=== PATIENT | female | born 1965 | race Caucasian/White ===

== ENCOUNTER 2024-06-03 19:13 | Inpatient (IN) ==
--- NOTE | 2024-06-03 19:42 | Emergency Department Note ---
Impression & Plan VELASQUEZ (dyspnea on exertion), Pneumonia, SOB (shortness of breath), Failure of outpatient treatment, Immunocompromised, Elevated troponin ED Provider Note NAME: ANGELICA GONZALES AGE: 59 SEX: F : 1965 ARRIVES VIA: Walk-In INFORMANT: [Patient] ED PROVIDER(S): [Geraldo Tejada MD] CHIEF COMPLAINT: Dr. Referred HISTORY OF PRESENT ILLNESS: The patient is a 59-year-old female with asthma, MS and diabetes. She does take rituximab every 3 months for the MS. The patient states that 2 months ago, she developed respiratory symptoms. She was given 2 different antibiotics as well as steroids. She never really got that much better. About a month later, she was put on another antibiotic without any improvement. The patient has had a persistent productive cough. She has been increasingly short of breath with exertion. She is fatigued. She is having fevers at nighttime. The patient had an outpatient CT scan performed [address] scan showed a bilateral pneumonia. She was told the results today and referred to the ER, hospitalization was suggested. PMHx/PSHx/Social Hx: See Below PHYSICAL EXAM: GENERAL: Patient is in no acute distress. HEENT: No acute trauma, normocephalic atraumatic, mucous membranes moist, no nasal congestion. NECK: No stridor, no adenopathy, no meningismus, trachea is midline. LUNGS: Diminished breath sounds bilaterally with some scattered wheezes and scattered crackles, no respiratory distress. HEART: Without murmurs gallops or rubs, regular rate and rhythm. ABDOMEN: Soft, nontender, no peritonitis. EXTREMITIES: No cyanosis, full range of motion of all the joints without pain or difficulty. NEUROLOGIC: Oriented x 3, no acute motor or sensory deficits, no focal weakness. SKIN: No jaundice, no diaphoresis. DIFFERENTIAL DIAGNOSIS: Failed outpatient management, immunocompromise, pneumonia, bronchitis, asthma flare, among others. EMERGENCY DEPARTMENT PROCEDURES: MEDICAL DECISION MAKING: There is no leukocytosis. A mild anemia was seen. There was a slightly high platelet count. No coagulopathy. VBG did not show acidosis or CO2 retention. No significant electrolyte abnormality, no renal failure. Lactic acid level was not elevated making severe sepsis less likely. No worrisome liver enzyme elevation. ECG shows a sinus rhythm, no obvious ST elevation. Cardiac enzyme testing x 1 was slightly elevated. This troponin elevation could be secondary to cardiac injury or possibly mismatch from her dyspnea. Respiratory bio fire was negative. Chest film does show pneumonia, primarily on the right. On exam, the patient had diminished breath sounds with some wheezing and crackles. She had failed outpatient treatment for pneumonia. She does carry history of immunocompromise. The patient received IV Solu-Medrol, a DuoNeb, IV Zosyn. I do think the patient deserves a hospital stay. She has been sick for months, she has been on 2 different rounds of antibiotics without improvement. She is immunocompromise, she has asthma. She has a bilateral pneumonia on CT imaging. I spoke with the patient and case management, the on-call hospitalist was consulted. Prior/Outside records/notes reviewed: None ECG per my interpretation: Indication was shortness of breath. The ECG shows a normal sinus rhythm with a rate of 85. There is no acute ST elevation, no PVCs. The QTc is 428. Continuous Cardiac Monitoring per my interpretation: An order was placed for continuous cardiac monitoring. The monitor shows a rate of 90 with normal sinus rhythm. Imaging/x-ray results per my interpretation: Chest x-ray does show a right lower lung pneumonia. No pneumothorax. Chronic Medical/Social conditions affecting care: History of immunosuppression. Care/Management discussed with: Case management, the on-call hospitalist. Level of care consideration(s): After review of the information above and other included data: --I believe the patient requires escalation of care to admission DISPOSITION: Admission Past Med/Surg History Problem List (Updated 06/03/24 @ 21:56 by Geraldo Tejada MD) Elevated troponin (Acute) Immunocompromised (Acute) Failure of outpatient treatment (Acute) SOB (shortness of breath) (Acute) Pneumonia (Acute) VELASQUEZ (dyspnea on exertion) (Acute) Medical History History of multiple sclerosis Social History Smoking Status: Never smoker Preferred Language: Setswana Feels Safe at Home: Yes Allergies Allergies Allergy/AdvReac Type Severity Reaction Status Date / Time No Known Allergies Allergy Verified 06/03/24 20:54 Home Meds Home Medications Medication Instructions Recorded Confirmed acetaminophen 650 mg 650 mg PO DIRECTED PRN Pain 06/03/24 06/03/24 tablet,extended release amlodipine 10 mg tablet 10 mg PO DAILY 06/03/24 06/03/24 atorvastatin 80 mg tablet 80 mg PO DAILY 06/03/24 06/03/24 baclofen 20 mg tablet 20 mg PO QID 06/03/24 06/03/24 celecoxib 200 mg capsule 200 mg PO BID 06/03/24 06/03/24 chlorthalidone 25 mg tablet 25 mg PO DAILY 06/03/24 06/03/24 gabapentin 100 mg capsule 100 mg PO HS 06/03/24 06/03/24 gabapentin 300 mg capsule 300 mg PO HS 06/03/24 06/03/24 insulin glargine 100 unit/mL (3 58 unit subcut QDD 06/03/24 06/03/24 mL) subcutaneous pen (Lantus Solostar U-100 Insulin) ipratropium 20 mcg-albuterol 100 1 spray inhalation DIRECTED PRN 06/03/24 06/03/24 mcg/actuation mist for inhalation Shortness Of Breath Or Wheezing (Combivent Respimat) lisinopril 40 mg tablet 40 mg PO DAILY 06/03/24 06/03/24 meloxicam 15 mg tablet 15 mg PO DAILY 06/03/24 06/03/24 mometasone-formoterol HFA 100 1 inh inhalation DIRECTED PRN 06/03/24 06/03/24 mcg-5 mcg/actuation aerosol Shortness Of Breath Or Wheezing inhaler (Dulera) sertraline 50 mg tablet 50 mg PO DAILY 06/03/24 06/03/24 tirzepatide 10 mg/0.5 mL 10 mg subcut WK 06/03/24 06/03/24 subcutaneous pen injector (Leslee) Results & Data (ED) Vital Signs Vital Signs - 24 hr 06/03/24 19:16 06/03/24 19:35 06/03/24 19:35 Temperature 36.7 C Temperature Source Temporal Artery Scan Pulse Rate 90 Respiratory Rate 20 Respiratory Effort / Characteristics Non-Labored Spontaneous Respiratory Depth Normal Blood Pressure 176/90 H Blood Pressure Mean 118 Pulse Oximetry 96 Oxygen Delivery Method Room Air Room Air Room Air Sepsis Recent Fever Within 48 Hours No Sepsis New/Unexplained Change in Mental Status N/A Sepsis Action Taken by Nursing No Action Required 06/03/24 19:35 06/03/24 21:14 06/03/24 21:32 Temperature Temperature Source Pulse Rate 83 Respiratory Rate 16 Respiratory Effort / Characteristics Non-Labored Non-Labored Respiratory Depth Normal Normal Blood Pressure 163/94 H Blood Pressure Mean 117 Pulse Oximetry 95 Oxygen Delivery Method Room Air Room Air Sepsis Recent Fever Within 48 Hours Sepsis New/Unexplained Change in Mental Status Sepsis Action Taken by Jail Medications Current Medication List: was personally reviewed by me Laboratory Data Attestation: I reviewed the patient's lab results. 06/03/24 19:47 06/03/24 19:47 Lab Results 06/03/24 06/03/24 Range/Units 19:47 20:11 WBC 7.38 (4.8-10.8) K/ul RBC 3.83 L (4.20-5.40) M/uL Hgb 11.2 L (12.0-16.0) g/dl Hct 34.4 L (37.0-47.0) % MCV 89.8 (80.0-100.0) fL MCH 29.2 (25.0-34.0) pg MCHC 32.6 (32.0-36.0) g/dL RDW Std Deviation 46.4 H (36.4-46.3) fL RDW Coeff of Calista 14.2 (11.5-14.5) % Plt Count 402 H (130-400) K/uL MPV 9.9 (9.4-12.4) fL Immature Gran % (Auto) 0.4 % Neut % (Auto) 65.8 % Lymph % (Auto) 19.5 % [place] % (Auto) 8.1 % Eos % (Auto) 5.7 % Baso % (Auto) 0.5 % Neut # (Auto) 4.85 (1.40-6.50) K/uL Lymph # (Auto) 1.44 (1.20-3.40) K/uL [place] # (Auto) 0.60 H (0.11-0.59) K/uL Eos # (Auto) 0.42 (0.00-0.50) K/uL Baso # (Auto) 0.04 (0.00-0.20) K/uL Immature Gran # (Auto) 0.03 (0.01-0.20) K/uL PT 10.2 (9.0-12.0) Seconds INR 0.9 (0.9-1.1) APTT 27 (21-31) Seconds PTT Ratio 1.0 VBG pH 7.41 (7.36-7.41) VBG pCO2 46 (38-50) mmHg VBG pO2 36 mmHg VBG HCO3 29 mmol/L VBG O2 Saturation < 60.0 % VBG Base Excess 3.8 mEq/L Sodium 141 (136-145) mmol/L Potassium 4.0 (3.5-5.1) mmol/L Chloride 104 (98-107) mmol/L Carbon Dioxide 30 (21-32) mmol/L Anion Gap 7 (3-11) BUN 19 (6-23) mg/dl Creatinine 0.91 (0.6-1.2) mg/dl Est Cr Clr Drug Dosing 86.8 ml/min eGFR 72.22 BUN/Creatinine Ratio 20.9 H (10-20) Glucose 121 H (70-99(Fasting)) mg/dl Lactate 1.0 (0.4-2.0) mmol/L Calcium 9.9 (8.6-10.3) mg/dl Magnesium 1.9 (1.7-2.4) mg/dl Total Bilirubin 0.3 (0.2-1.0) mg/dl AST 15 (13-39) U/L ALT 12 (7-52) U/L Alkaline Phosphatase 169 H (34-104) U/L Troponin I High Sens 19.0 H (0-14) pg/ml Total Protein 7.2 (6.0-8.3) gm/dl Albumin 4.0 (3.4-5.0) gm/dl Globulin 3.2 (2.5-4.0) gm/dl Albumin/Globulin Ratio 1.3 (0.9-2) Adenovirus (PCR) Not Detected (NotDetected) B. pertussis DNA (PCR) Not Detected (NotDetected) B.parapertussis DNA PCR Not Detected (NotDetected) C. pneumoniae DNA (PCR) Not Detected (NotDetected) Coronavirus OC43 (PCR) Not Detected (NotDetected) Coronavirus HKU1 (PCR) Not Detected (NotDetected) Coronavirus 229E (PCR) Not Detected (NotDetected) SARS-CoV-2 (PCR) Not Detected (NotDetected) Coronavirus NL63 (PCR) Not Detected (NotDetected) Human Metapneumovir PCR Not Detected (NotDetected) Influenza Type A (PCR) Not Detected (NotDetected) Influenza Type B (PCR) Not Detected (NotDetected) M. pneumoniae (PCR) Not Detected (NotDetected) Parainfluenza 1 (PCR) Not Detected (NotDetected) Parainfluenza 2 (PCR) Not Detected (NotDetected) Parainfluenza 3 (PCR) Not Detected (NotDetected) Parainfluenza 4 (PCR) Not Detected (NotDetected) RSV (PCR) Not Detected (NotDetected) Entero/Rhino (PCR) Not Detected (NotDetected) Administered Medications Discontinued Medications Albuterol (Albut/Ipratrop 3mg/0.5mg Neb 3 Ml Vial) 3 ml NEB NOW STA; Protocol Stop: 06/03/24 19:36 Last Admin: 06/03/24 19:51 Dose: 3 ml Documented By: TOMÁS Amlodipine Besylate (Amlodipine Besylate 5 Mg Tab) 10 mg PO NOW ONE Stop: 06/03/24 21:22 Last Admin: 06/03/24 21:43 Dose: 10 mg Documented By: TOMÁS Baclofen (Baclofen 20 Mg Tab) 20 mg PO ONE ONE Stop: 06/03/24 21:22 Last Admin: 06/03/24 21:45 Dose: 20 mg Documented By: TOMÁS Chlorthalidone (Chlorthalidone 25 Mg Tab) 25 mg PO ONE ONE Stop: 06/03/24 21:23 Last Admin: 06/03/24 21:43 Dose: 25 mg Documented By: TOMÁS Gabapentin (Gabapentin 400 Mg Cap) 400 mg PO ONE ONE Stop: 06/03/24 21:24 Last Admin: 06/03/24 21:44 Dose: 400 mg Documented By: TOMÁS Piperacillin Sod/Tazobactam Sod (Zosyn) 4.5 gm in 100 mls @ 200 mls/hr IV NOW ONE Stop: 06/03/24 20:04 Last Infusion: 06/03/24 20:30 Dose: Infused Documented By: Admin: 06/03/24 19:54 Dose: 200 mls/hr Documented By: TOMÁS Lisinopril (Lisinopril 40 Mg Tab) 40 mg PO ONE ONE Stop: 06/03/24 21:23 Last Admin: 06/03/24 21:44 Dose: 40 mg Documented By: TOMSÁ Meloxicam (Meloxicam 7.5 Mg Tab) 15 mg PO ONE ONE Stop: 06/03/24 21:24 Last Admin: 06/03/24 21:45 Dose: 15 mg Documented By: TOMÁS Methylprednisolone (Methylprednisolone 125 Mg/2 Ml Vial) 60 mg IV NOW STA Stop: 06/03/24 19:36 Last Admin: 06/03/24 19:52 Dose: 60 mg Documented By: TOMÁS Ondansetron HCl (Ondansetron Inj 2 Mg/Ml 2 Ml Vial) Confirm Administered Dose 4 mg .ROUTE .STK-MED ONE Stop: 06/03/24 20:08 Last Admin: 06/03/24 20:09 Dose: 4 mg Documented By: TOMÁS Sertraline HCl (Sertraline Hcl 50 Mg Tablet) 50 mg PO NOW ONE Stop: 06/03/24 21:22 Last Admin: 06/03/24 21:45 Dose: Not Given Documented By: TOMÁS Imaging Data Radiologist's Impression: Patient: ANGELICA GONZALES Admit Date: 06/01/24 MR#: [id number] Address1: [address] [place] [address] Acct ID:[id number] Address2: Date: 1965 [facility] Zip: [place] [address] Age: 59 Location: CT Sex: F Room/Bed: Att Phy: Alicia Nuñez PA-C Diagnosis: J18.9 PNEUMONIA Brittany Phy: Alicia Nuñez PA-C Service Date: 06/01/24 Fam Phy: Interpreting Phy: Ace Roper MDAdmit Phy: Ordering Phy: Alicia Nuñez PA-C cc: ~ CT chest diagnostic wo con CT DOSE: 899.64 mGy.cm CLINICAL HISTORY: J18.9 PNEUMONIA. TECHNIQUE: Multiaxial CT images of the chest were performed without contrast. A dose lowering technique was utilized adhering to the principles of ALARA. COMPARISON STUDY: Chest x-ray of 11/21/2023 FINDINGS: Stable atrial septal closure device. There are mild airway secretions. There is mild bronchial wall thickening consistent with bronchitis. There are interval scattered areas of patchy consolidation and groundglass opacity in both lungs, most prominent at the right upper lobe, consistent with pneumonia. There is no pleural effusion or pneumothorax. No enlarged adenopathy. No pericardial effusion. There are mitral valvular calcifications. There are mild coronary artery calcifications. There are mild diffuse thoracic spine degenerative changes. There is a vertebral body hemangioma at the T2 vertebral body. IMPRESSION: Bilateral pneumonia, right greater than left. Suggest follow-up chest CT in 3 months to make sure this completely resolves. Discharge Plan Visit Data Chief Complaint: Shortness of Breath/Dyspnea Stated Complaint: BILATERAL PNEUMONIA, DOC REFERRAL ED Provider: Geraldo Tejada Discharge Problem: VELASQUEZ (dyspnea on exertion), Pneumonia, SOB (shortness of breath), Failure of outpatient treatment, Immunocompromised, Elevated troponin Patient Disposition: Admitted As Inpatient Condition: Fair Forms Stand Alone Forms: My [facility] Prescriptions Prescriptions: No Action celecoxib 200 mg Capsule 200 mg PO BID atorvastatin 80 mg tablet 80 mg PO DAILY meloxicam 15 mg tablet 15 mg PO DAILY chlorthalidone 25 mg tablet 25 mg PO DAILY acetaminophen [Tylenol Arthritis] 650 mg Tablet Extended Release 650 mg PO DIRECTED PRN (Reason: Pain) baclofen 20 mg tablet 20 mg PO QID amlodipine 10 mg tablet 10 mg PO DAILY gabapentin 300 mg capsule 300 mg PO HS Rx Instructions: TOTAL DOSE 400 MG--TAKES WITH 100 MG CAP. gabapentin 100 mg capsule 100 mg PO HS Rx Instructions: TOTAL DOSE 400 MG--TAKES WITH 300 MG CAP. lisinopril 40 mg tablet 40 mg PO DAILY sertraline 50 mg tablet 50 mg PO DAILY insulin glargine [Lantus Solostar U-100 Insulin] 100 unit/mL (3 mL) insulin pen 58 unit SUBCUT QDD Dulera 100-5 mcg/actuation HFA aerosol inhaler 1 inh INHALATION DIRECTED PRN (Reason: Shortness Of Breath Or Wheezing) Combivent Respimat 20-100 mcg/actuation mist 1 spray INHALATION DIRECTED PRN (Reason: Shortness Of Breath Or Wheezing) Mounjaro 10 mg/0.5 mL pen injector 10 mg SUBCUT WK Rx Instructions: TAKES ON THURSDAYS Referrals Referrals: Alicia Nuñez PA-C [Primary Care Provider] - Discharge Problem: Pneumonia Qualifiers: Pneumonia type: due to unspecified organism Laterality: bilateral Lung location: unspecified part of lung Qualified Code(s): J18.9 - Pneumonia, unspecified organism
[2024-06-03] MEDS: ALBUT/IPRATROP 3MG/0.5MG NEB 3 ML VIAL NEB STA (19:51)
[2024-06-03] MEDS: methylPREDNISolone 125 MG/2 ML VIAL IV STA (19:52)
[2024-06-03] MEDS: PIPERACILLIN/TAZOBACTAM 4.5 GM/100 ML BAG IV ONE (19:54)
[2024-06-03 20:08] LABS: Base Excess VBG 3.8 mEq/L; Basophils # (auto) 0.04 K/uL (0.00-0.20); Basophils % (auto) 0.5 %; Eosinophils # (auto) 0.42 K/uL (0.00-0.50); Eosinophils % (auto) 5.7 %; HCO3 VBG 29 mmol/L; Hematocrit (blood only) 34.4 % (37.0-47.0); Hemoglobin 11.2 g/dl (12.0-16.0); Immature Granulocytes # (auto) 0.03 K/uL (0.01-0.20); Immature Granulocytes % (auto) 0.4 %; Lymphocytes # (auto) 1.44 K/uL (1.20-3.40); Lymphocytes % (auto) 19.5 %; Mean Corpuscular Hemoglobin 29.2 pg (25.0-34.0); Mean Corpuscular Hgb Conc 32.6 g/dL (32.0-36.0); Mean Corpuscular Volume 89.8 fL (80.0-100.0); Mean Platelet Volume 9.9 fL (9.4-12.4); Monocytes % (auto) 8.1 %; Neutrophils # (auto) 4.85 K/uL (1.40-6.50); Neutrophils % (auto) 65.8 %; Oxygen Saturation VBG < 60.0 %; PCO2 VBG 46 mmHg (38-50); PO2 VBG 36 mmHg; Platelet Count 402 K/uL (130-400); RDW Coefficient of Variation 14.2 % (11.5-14.5); RDW Standard Deviation 46.4 fL (36.4-46.3); Red Blood Count 3.83 M/uL (4.20-5.40); White Blood Count 7.38 K/ul (4.8-10.8); pH VBG 7.41 (7.36-7.41)
[2024-06-03] MEDS: ONDANSETRON INJ 2 MG/ML 2 ML VIAL ONE (20:09)
[2024-06-03 20:25] LABS: Albumin Globulin Ratio 1.3 (0.9-2); BUN Creatinine Ratio 20.9 (10-20); Bilirubin,Total 0.3 mg/dl (0.2-1.0); Calcium 9.9 mg/dl (8.6-10.3); Creatinine Clr Calc Pharmacy 86.8 ml/min; Globulin 3.2 gm/dl (2.5-4.0); Magnesium 1.9 mg/dl (1.7-2.4); Total Protein 7.2 gm/dl (6.0-8.3)
[2024-06-03 20:36] LABS: INR 0.9 (0.9-1.1); Partial Thromboplastin Time 27 Seconds (21-31); Prothrombin Time 10.2 Seconds (9.0-12.0)
[2024-06-03 21:08] LABS: Adenovirus PCR Not Detected (NotDetected); Bordetella parapertussis PCR Not Detected (NotDetected); Bordetella pertussis PCR Not Detected (NotDetected); Chlamydia pneumoniae PCR Not Detected (NotDetected); Coronavirus 229E PCR Not Detected (NotDetected); Coronavirus CoV-2 (COVID19)PCR Not Detected (NotDetected); Coronavirus HKU1 PCR Not Detected (NotDetected); Coronavirus NL63 PCR Not Detected (NotDetected); Coronavirus OC43PCR Not Detected (NotDetected); Human Metapneumovirus PCR Not Detected (NotDetected); Influenza A PCR Not Detected (NotDetected); Influenza B PCR Not Detected (NotDetected); Mycoplasma pneumoniae PCR Not Detected (NotDetected); Parainfluenza Virus 1 PCR Not Detected (NotDetected); Parainfluenza Virus 2 PCR Not Detected (NotDetected); Parainfluenza Virus 3 PCR Not Detected (NotDetected); Parainfluenza Virus 4 PCR Not Detected (NotDetected); Respiratory Syncytial VirusPCR Not Detected (NotDetected); Rhinovirus/Enterovirus PCR Not Detected (NotDetected)
[2024-06-03] MEDS: CHLORTHALIDONE 25 MG TAB PO ONE (21:43)
[2024-06-03] MEDS: amLODIPine BESYLATE 5 MG TAB PO ONE (21:43)
[2024-06-03] MEDS: lisinopril 40 MG TAB PO ONE (21:44)
[2024-06-03] MEDS: GABAPENTIN 400 MG CAP PO ONE (21:44)
[2024-06-03] MEDS: SERTRALINE HCL 50 MG TABLET PO ONE (21:45)
[2024-06-03] MEDS: MELOXICAM 7.5 MG TAB PO ONE (21:45)
[2024-06-03] MEDS: BACLOFEN 20 MG TAB PO ONE (21:45)
--- NOTE | 2024-06-03 21:47 | History & Physical Report ---
Date of Service June 03, 2024 Assessment & Plan (1) Pneumonia: Plan: Bilateral pneumonia seen on outpatient CT. With rib pain and SOB would like to r/o PE. PERC cannot rule out, Well's low risk. Ordered D-dimer as the pre-test probability is low. D-dimer positive - ordered CTA PE protocol. Zosyn for broad coverage as patient failed outpatient management and carries an immunocompromised status. pulmonary toilet - mucinex, IS, flutter, duonebs, steroids zosyn for abx - if MRSA nares neg could consider narrowing blood cultures pending continue home inhalers with on formulary equivalent CTA PE protocol (2) Insulin dependent type 2 diabetes mellitus: Plan: SSI with basal coverage. Pharmacy consulted as she will likely need increased coverage with steroid therapy. (3) Elevated troponin: Plan: Likely demand ischemia. Trend to peak. (4) SOB (shortness of breath): (5) Asthma exacerbation: (6) Immunocompromised: (7) Failure of outpatient treatment: (8) Rib pain: Plan HTN: continue amlodipine, lisinopril, chlorthalidone Muscle Spasms/Chronic Pain: continue Meloxicam/Celebrex, gabapentin, baclofen, and Tylenol as needed HLD: continue high intensity statin therapy Code status: full DVT ppx: Lovenox 40 mg SQ Q24 FENGI: CC diet Dispo: MedSurg, continuous pulse ox History of Present Illness Chief Complaint: cough SOB Primary Care Provider: Alicia Nuñez 59 y/o female with a PMHx of MS on Rituximab, IDDM, HTN, HLD, muscle spasms/chronic pain, and asthma here for evaluation of respiratory symptoms. Patient has been treated multiple times for presumed pneumonia. She was treated initially in February with Augmentin, Z-pack, and Medrol dose pack. Symptoms without significant improvement at the end of March so 7 days of Levaquin was prescribed and a CT Chest ordered. Patient got the CT Chest 06/01 which showed bilateral multifocal pneumonia and she was instructed to come to the ED. Patient does take Tylenol throughout the day for pain so she has not noticed any fevers. Patient does wake up sweaty, which is abnormal for her. No unintentional weight loss. Did have an episode of right sided flank/rib pain and reports muscle spasms from cough. No abdominal pain. Has urinary frequency and drinks a lot of water, but no pain or blood in the urine. Reports that she gets dehydrated easily. She takes most of her medications at night, so she had not had her BP meds today. Allergies Allergy/AdvReac Type Severity Reaction Status Date / Time No Known Allergies Allergy Verified 06/03/24 20:54 Home Medications Medication Instructions Recorded Confirmed Type acetaminophen 650 mg 650 mg PO DIRECTED PRN Pain 06/03/24 06/03/24 History tablet,extended release amlodipine 10 mg tablet 10 mg PO DAILY 06/03/24 06/03/24 History atorvastatin 80 mg tablet 80 mg PO DAILY 06/03/24 06/03/24 History baclofen 20 mg tablet 20 mg PO QID 06/03/24 06/03/24 History celecoxib 200 mg capsule 200 mg PO BID 06/03/24 06/03/24 History chlorthalidone 25 mg tablet 25 mg PO DAILY 06/03/24 06/03/24 History gabapentin 100 mg capsule 100 mg PO HS 06/03/24 06/03/24 History gabapentin 300 mg capsule 300 mg PO HS 06/03/24 06/03/24 History insulin glargine 100 unit/mL (3 58 unit subcut QDD 06/03/24 06/03/24 History mL) subcutaneous pen (Lantus Solostar U-100 Insulin) ipratropium 20 mcg-albuterol 100 1 spray inhalation DIRECTED PRN 06/03/24 06/03/24 History mcg/actuation mist for inhalation Shortness Of Breath Or Wheezing (Combivent Respimat) lisinopril 40 mg tablet 40 mg PO DAILY 06/03/24 06/03/24 History meloxicam 15 mg tablet 15 mg PO DAILY 06/03/24 06/03/24 History mometasone-formoterol HFA 100 1 inh inhalation DIRECTED PRN 06/03/24 06/03/24 History mcg-5 mcg/actuation aerosol Shortness Of Breath Or Wheezing inhaler (Dulera) sertraline 50 mg tablet 50 mg PO DAILY 06/03/24 06/03/24 History tirzepatide 10 mg/0.5 mL 10 mg subcut WK 06/03/24 06/03/24 History subcutaneous pen injector (Leslee) Past Med/Surg History Problem List (Updated 06/03/24 @ 21:59 by Lina Perez MD) Rib pain Insulin dependent type 2 diabetes mellitus Asthma exacerbation Elevated troponin (Acute) Immunocompromised (Acute) Failure of outpatient treatment (Acute) SOB (shortness of breath) (Acute) Pneumonia (Acute) VELASQUEZ (dyspnea on exertion) (Acute) Medical History History of multiple sclerosis Social History Smoking Status: Never smoker Second Hand Exposure: Yes (as a child); Hx Alcohol Use: Yes Alcohol type: hard liquor Hx Substance Use: No Preferred Language: Croatian Communication Ability: Effective 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 Beliefs That Will Affect Care: None Current Living Situation: Spouse Feels Safe at Home: Yes Safety Concerns: Feels Safe At This Time Assistive Devices: Cane and Walker Review of Systems 2 Review of Systems: See HPI Physical Exam 2 Physical Exam: Gen: well appearing patient in NAD, intermittently coughing - productive HEENT: AT NC MMM Resp: Diffuse rhonchi and rales, no obvious wheezing, diminished throughout, no increased work of breathing CV: RRR no m/r/g clinically well perfused Abd: +BS, soft, non-tender, non-distended, CVA or suprapubic tenderness MSK: no obvious deformities Skin: no rashes or bruising Neuro: alert and oriented Psych: appropriate mood and affect Results & Data Results & Data Vital Signs (Past 12 Hours) Vital Signs Temp Pulse Resp BP Pulse Ox O2 Del Method 06/03/24 21:32 83 16 163/94 H 95 Room Air 06/03/24 21:14 Room Air 06/03/24 19:35 Room Air 06/03/24 19:35 Room Air 06/03/24 19:16 36.7 C 90 20 176/90 H 96 Room Air Laboratory Results 06/03/24 19:47 06/03/24 19:47 Code Status & VTE Plan VTE Prophylaxis Plan VTE Prophylaxis will be ordered: Yes Supervising Physician Co-Signing Physician Notes Attending addendum: I have physically seen this patient, have supervised the medical residents activities, and agree with the H&P unless as otherwise noted. Assessment and Plan: The patient is a 59-year-old female past medical history including insulin- dependent milligrams, hypertension, hyperlipidemia, asthma, multiple sclerosis on rituximab, muscle spasms/chronic pain syndrome, who presents to the emergency department with worsening shortness of breath and productive cough. She has had treatment several times for presumed pneumonia. She underwent CT scan of chest on 06/01, which showed bilateral pneumonia, right greater than left. She is referred to the [facility] service for evaluation and treatment. #Bilateral pneumonia/immunocompromised state- CTA PE protocol performed on 06/01 notes bilateral pneumonia/right greater than left Zosyn 4.5 g IV every 8 hours Duonebs every 4 hours while awake and every 2 hours when necessary. Had MRSA swab, titrate if positive Sputum Gram stain culture Continue home inhalers Diabetes mellitus- Pharmacy glycemic consult placed Elevated troponin/hypertension- Troponin 19.0, follow-up pending Continue amlodipine, lisinopril and chlorthalidone Likely supply/demand mismatch Chronic medical conditions: Hyperlipidemia continue atorvastatin Muscle spasm/chronic pain syndrome-continue meloxicam/Celebrex, gabapentin, baclofen, Tylenol as needed Resident Activity Tracking Resident Involvement: Resident Care Provided Care Provided: Adult Hospital Medicine (1) Pneumonia Laterality: bilateral Lung location: unspecified part of lung Pneumonia type: due to unspecified organism Qualified Code(s): J18.9 - Pneumonia, unspecified organism
--- NOTE | 2024-06-03 21:59 | XRay Report ---
Exam(s): XR CXR 1 VIEW EXAM: XR Chest, 1 View CLINICAL HISTORY: Reason for exam: Dyspnea. TECHNIQUE: Frontal view of the chest. COMPARISON: 11/21/2023 FINDINGS: Lungs: No consolidation. No overt edema. Pleural space: No pleural effusion. No pneumothorax. Heart: Unremarkable. No cardiomegaly. IMPRESSION: No acute cardiopulmonary abnormality. Electronically signed by: Jayden Glover MD 06/03/24 21:58 PM
[2024-06-03 22:00] LABS: D Dimer 630 ug/L FEU (0-500)
[2024-06-03] MEDS: OPTIRAY 320 125ml IV ONE (22:53)
[2024-06-03] MEDS ORDERED: CARBOHYDRATES FOR HYPOGLYCEMIA PO PRN (23:54)
[2024-06-03] MEDS ORDERED: PHARMACY GLYCEMIC MGMT CONSULT PRN (23:54)
[2024-06-03] MEDS ORDERED: IPRATROPIUM BROMIDE/ALBUTEROL respimat INH INH PRN (23:54)
[2024-06-03] MEDS ORDERED: GLUCAGON FOR INJ 1 MG VIAL SQ PRN (23:54)
[2024-06-03] MEDS ORDERED: ALBUT/IPRATROP 3MG/0.5MG NEB 3 ML VIAL NEB PRN (23:54)
[2024-06-03] MEDS ORDERED: GLUCOSE 10 TAB/TUBE PO PRN (23:54)
[2024-06-03] MEDS ORDERED: MELATONIN 3 MG TAB PO PRN (23:54)
[2024-06-03] MEDS ORDERED: [UNRECOGNIZED DRUG - OTHER] INH PRN (23:54)
[2024-06-03] MEDS ORDERED: MAGNESIUM HYDROXIDE SUSP 30 ML UDC PO PRN (23:54)
[2024-06-03] MEDS ORDERED: DEXTROSE 50% 50 ML SYRINGE IV PRN (23:54)
[2024-06-03] MEDS ORDERED: POLYETHYLENE (MIRALAX) 17 GM PACK PO PRN (23:54)
[2024-06-03] MEDS ORDERED: ALUMINUM/MAGNESIUM SUSP 30 ML UDC PO PRN (23:54)
[2024-06-03] MEDS ORDERED: GLUCOSE 40% GEL 15 GM TUBE PO PRN (23:54)
[2024-06-03 23:57] LABS: Appearance Urine Cloudy (Clear); Bacteria Urine Automated 1+ (None Seen); Bilirubin Urine Negative (Negative); Blood Urine Negative (Negative); Calcium Oxalate Crystals Urine Present (None Prsent); Cast Urine Automated 0-2 /lpf (0-2); Color Urine Yellow; Glucose Urine UA Negative (Negative); Ketones Urine Trace (Negative); Leukocyte Esterase Urine Negative (Negative); Nitrite Urine Negative (Negative); Protein Urine Negative (Negative); RBC Urine Automated 0-2 /hpf (0-2); Specific Gravity Urine 1.024 (1.000-1.030); Urobilinogen Urine Negative (Negative); WBC Urine Automated 0-5 /hpf (0-5); pH Urine 5.5 (4.5-7.5)
[2024-06-04] MEDS: ALBUT/IPRATROP 3MG/0.5MG NEB 3 ML VIAL NEB SCH (00:30)
--- NOTE | 2024-06-04 00:33 | CT Scan Report ---
Exam(s): CTA CHEST IV Amt: 118 ML OPTIRAY 320 EXAM: CT Angiography Chest With Intravenous Contrast CLINICAL HISTORY: Reason for exam: PE. TECHNIQUE: Axial computed tomographic angiography images of the chest with intravenous contrast. CTDI is 38 mGy and DLP is 860.05 mGy-cm. Automated exposure control was utilized for the study. A dose lowering technique was utilized adhering to the principles of ALARA. MIP reconstructed images were created and reviewed. COMPARISON: No relevant prior studies available. FINDINGS: Artifact degrades image quality somewhat limiting the exam. Pulmonary arteries: No pulmonary embolism is seen. Aorta: No thoracic aortic aneurysm or dissection. Lungs: There are patchy bilateral infiltrates more pronounced on the right.. Pleural space: No significant effusion. No pneumothorax. Heart: Heart is normal in size. A cardiac stent is noted. Bones/joints: There are degenerative changes in the spine. Soft tissues: Unremarkable. Lymph nodes: No enlarged lymph nodes. IMPRESSION: Limited exam. No pulmonary embolism is seen. There are patchy bilateral infiltrates more pronounced on the right. Electronically signed by: Seamus Kennedy MD 06/04/24 00:32 AM
[2024-06-04] MEDS: ENOXAPARIN INJ 40 MG/0.4 ML SYR SQ SCH (01:22)
[2024-06-04] MEDS: PIPERACILLIN/TAZOBACTAM 4.5 GM/100 ML BAG IV SCH (01:23)
[2024-06-04] MEDS: INSULIN ASPART PER UNIT CHARGE SC SCH (01:28)
[2024-06-04] MEDS ORDERED: IPRATROPIUM BROMIDE HFA INHALER INH PRN (03:28)
[2024-06-04] MEDS ORDERED: ALBUTEROL HFA 8 GM INHALER INH PRN (03:28)
[2024-06-04] MEDS: ACETAMINOPHEN 500 MG TAB PO PRN (03:55)
[2024-06-04 04:10] LABS: Hematocrit (blood only) 31.3 % (37.0-47.0); Hemoglobin 10.1 g/dl (12.0-16.0); Mean Corpuscular Hemoglobin 28.9 pg (25.0-34.0); Mean Corpuscular Hgb Conc 32.3 g/dL (32.0-36.0); Mean Corpuscular Volume 89.7 fL (80.0-100.0); Mean Platelet Volume 10.4 fL (9.4-12.4); Platelet Count 361 K/uL (130-400); RDW Coefficient of Variation 14.3 % (11.5-14.5); RDW Standard Deviation 46.1 fL (36.4-46.3); Red Blood Count 3.49 M/uL (4.20-5.40); White Blood Count 6.52 K/ul (4.8-10.8)
[2024-06-04] MEDS: BACLOFEN 10 MG TAB PO STA (04:52)
[2024-06-04 06:13] LABS: BUN Creatinine Ratio 20.7 (10-20); Creatinine Clr Calc Pharmacy 65.7 ml/min; Potassium 4.9 mmol/L (3.5-5.1)
[2024-06-04] MEDS: ALBUT/IPRATROP 3MG/0.5MG NEB 3 ML VIAL ONE (07:03)
[2024-06-04] MEDS: guaiFENesin 600 MG TABCR PO SCH (08:00)
[2024-06-04] MEDS: BACLOFEN 20 MG TAB PO SCH (08:00)
[2024-06-04] MEDS: methylPREDNISolone 40 MG in SYRINGE 0 ML IV SCH (08:00)
[2024-06-04] MEDS: CeleBREX 200 MG CAP PO SCH (08:00)
[2024-06-04] MEDS: ATORVASTATIN 40 MG TAB PO SCH (08:00)
[2024-06-04] MEDS: LANTUS PER UNIT CHARGE SC SCH ×2 (08:09→20:45)
[2024-06-04 08:32] LABS: Estimated Average Glucose 197 mg/dl; Hemoglobin A1C 8.5 % (4.5-5.6)
[2024-06-04] MEDS ORDERED: LANTUS PER UNIT CHARGE SQ SCH (09:00)
[2024-06-04] MEDS ORDERED: methylPREDNISolone 10 mg/mL (For Ped Dose < 7mg) IV SCH (09:00)
[2024-06-04] MEDS: SODIUM CHLORIDE 0.9% 500 ML IV ONE (09:23)
--- NOTE | 2024-06-04 10:45 | Pharmacy Report ---
Pharmacy Glycemic Short Note 2 - Date of Service June 04, 2024 - Glycemic Short BSG Results (Last 24 hours): 06/03/24 06/04/24 06/04/24 19:47 03:46 05:24 Glucose 121 H Cancelled 367 H* POC Glucose 06/04/24 06/04/24 07:30 07:32 Glucose POC Glucose 319 H* 326 H* OUTPATIENT ANTIDIABETIC REGIMEN: * Lantus 58 units SQ QDD * Mounjaro 10mg SQ TH * HbA1c 8.5% (06/04/24) ASSESSMENT: * Sandra is a 59 year old female admitted with bilateral pneumonia/asthma exacerbation and a history of type 2 diabetes mellitus on insulin therapy outpatient. Pharmacy has been consulted to assist with glycemic management while inpatient. * BSGs well controlled yesterday evening, no additional basal insulin given yesterday with steroids due to this. Received Solumedrol 60mg IV x1 yesterday and has 40mg IV BID ordered ongoing. Will give ~0.4 units/kg adjusted body weight this morning with steroids and add a scale at bedtime with nightime Solumedrol up to home insulin dose. * NovoLog initiated based on outpatient basal dosing, no insulin given yesterday due to BSGs within goal range, AM BSG in 300s, showing significant steroid reactivity, will adjust to a weight based stress of 3. PLAN FOR INPATIENT GLYCEMIC CONTROL: * Hold outpatient oral diabetes medications * Basal insulin * Lantus 30 units SQ QAM * Lantus 20-60 units SQ HS * Bolus insulin * NovoLog per scale ACHS or Q6hrs while NPO * Goal Range: Low 110 mg/dL - High 140 mg/dL * Correction Factor: 15 mg/dL/unit * Nutritional / Prandial insulin per carb ratio of 1 unit per 5 grams CHO consumed
[2024-06-04] MEDS: INSULIN HUMAN REGULAR PER UNIT 8 UNITS in SYRINGE 7.92 ML IV ONE (12:10)
--- NOTE | 2024-06-04 16:45 | Hospitalist Progress Note ---
Date of Service June 04, 2024 Assessment & Plan (1) Pneumonia: (2) Insulin dependent type 2 diabetes mellitus: (3) Elevated troponin: (4) Immunocompromised: (5) Failure of outpatient treatment: (6) Rib pain: Plan 59 y/o female with a PMHx of MS on Rituximab, IDDM, HTN, HLD, muscle spasms/chronic pain, and asthma here for evaluation of respiratory symptoms. Recent outpatient course of Levaquin. Also prior course of Augmentin/steroids. Had outpatient CT chest 06/01 that showed bilateral multifocal PNA and was instructed to come to the ER. #PNA / failure of outpatient treatment Positive D-Dimer, CTA chest without PE Continue Zosyn. MRSA nares negative. Pulmonary toilet - mucinex, IS, flutter, duonebs, steroids IV BID Blood cultures: pending Sputum culture orderded Remains on room air - encouraged ambulation to asses VELASQUEZ. #LEO suspect related to dehydration and continued meds Cr 0.91 on admission, 1.21 today 500cc NSS bolus given, encourage PO fluids recheck in AM #DMT2 Home meds: Lantus 58u - HELD Pharmacy glycemic consult with steroid use #Elevated troponin Peaked at 21, downtrending. EKG without ST elevations. Denies CP. Suspect demand. HTN: continue amlodipine, lisinopril, chlorthalidone Muscle Spasms/Chronic Pain: continue Meloxicam/Celebrex, gabapentin, baclofen, and Tylenol as needed HLD: continue high intensity statin therapy DVT ppx: Lovenox 40 mg SQ Q24 Dispo: continued inpatient stay, possible d/c tomorrow Admission and Anticipated Discharge Date Admission Date: June 03, 2024 Subjective patient seen sitting up in bed, eating lunch. At this time she room air and she does not cough during my encounter. She states that she is feeling better, does not feel like she is coughing as much has not been able to produce a sputum sample at this time is not ambulated for the bathroom so was unable to assess if she is short of breath with activityI encouraged her to do this Review of Systems Review of Systems: All systems reviewed & are unremarkable except as noted in Subjective Physical Exam Physical Exam: General: NAD, VS as above, sitting up in bed, eating lunch, appears well Resp: normal respiratory effort, mild rhonchi throughout CV: RRR, no murmur, Abd: normal bowel sounds, non tender, no hepatosplenomegaly Extremities: Moves all extremities, trace lower extremity edema Neuro: A&O x3, Skin: intact, no lesions noted Results & Data Results & Data Vital Signs (Past 12 Hours) Vital Signs Temp Pulse Pulse Resp BP Pulse Ox O2 Del Method 06/04/24 14:44 98.2 F 77 16 112/67 91 Room Air 06/04/24 07:29 Room Air 06/04/24 07:28 97.7 F 75 16 114/73 93 Room Air 06/04/24 07:03 80 16 95 Room Air Laboratory Results CBC and chemistry reviewed blood cultures and urine cultures reviewed Diagnostic Findings chest CTA reviewed PG Care Time/CCT Total # of Minutes Spent Total Time Spent with Patient: Total time spent is greater than 50% in coordination of care (as documented) at patient's floor/unit and/or counseling patient: Coding Level of Care Code 72675 SUB INP/OBS CARE 3/50MIN Diagnoses Pneumonia J18.9 Laterality: bilateral Lung location: unspecified part of lung Pneumonia type: due to unspecified organism Insulin dependent type 2 diabetes mellitus E11.9; Z79.4 Elevated troponin R79.89 Immunocompromised D84.9 Failure of outpatient treatment Z78.9 Rib pain R07.81 (1) Pneumonia Laterality: bilateral Lung location: unspecified part of lung Pneumonia type: due to unspecified organism Qualified Code(s): J18.9 - Pneumonia, unspecified organism
[2024-06-04] MEDS: GABAPENTIN 100 MG CAP PO SCH (20:30)
[2024-06-04] MEDS: GABAPENTIN 300 MG CAP PO SCH (20:31)
[2024-06-04] MEDS: lisinopril 40 MG TAB PO SCH (20:32)
[2024-06-04] MEDS: MELOXICAM 7.5 MG TAB PO SCH (20:32)
[2024-06-04] MEDS: SERTRALINE HCL 50 MG TABLET PO SCH (20:49)
[2024-06-04] MEDS ORDERED: CHLORTHALIDONE 25 MG TAB PO SCH (21:00)
--- NOTE | 2024-06-05 02:26 | Billing Data ---
Date of Service June 05, 2024 Coding Level of Care Code 72684 INT INP/OBS CARE
--- NOTE | 2024-06-05 05:59 | Electrocardiogram Report ---
Test Reason : Blood Pressure : */* mmHG Vent. Rate : 85 BPM Atrial Rate : 85 BPM P-R Int : 154 ms QRS Dur : 86 ms QT Int : 360 ms P-R-T Axes : 59 -5 46 degrees QTcB Int : 428 ms Normal sinus rhythm Normal ECG No previous ECGs available Confirmed by Rakan العراقي ([id number]) on 06/05/2024 5:59:25 AM Referred By: Alicia Nuñez Confirmed By: Rakan العراقي
[2024-06-05 07:15] LABS: BUN Creatinine Ratio 25.6 (10-20); Calcium 9.1 mg/dl (8.6-10.3); Potassium 4.4 mmol/L (3.5-5.1)
[2024-06-05 07:48] VITALS: BP 118/73; PULSE 70; RESP 16; TEMP 97.5; O2SAT 94
[2024-06-05] MEDS: LANTUS PER UNIT CHARGE SC SCH (08:45)
--- NOTE | 2024-06-05 09:33 | Discharge Summary ---
Discharge Summary Date of Service June 05, 2024 Principal Dx & Hospital Course #1 = Principal Diagnosis (1) Pneumonia: (2) Insulin dependent type 2 diabetes mellitus: (3) Elevated troponin: (4) Immunocompromised: (5) Failure of outpatient treatment: (6) Rib pain: Plan #PNA / failure of outpatient treatment 59 y/o female with a PMHx of MS on Rituximab, IDDM, HTN, HLD, muscle spasms/chronic pain, and asthma here for evaluation of respiratory symptoms. Recent outpatient course of Levaquin. Also prior course of Augmentin/steroids. Had outpatient CT chest 06/01 that showed bilateral multifocal PNA and was instr ucted to come to the ER. Was not requiring supplemental oxygen, but did have shortness of breath with exertion. She had a positive D-dimer so CTA chest was done showing no PE. Received IV zosyn, IV steroids, mucinex and duonebs, and has improved. Will be discharge with Augmentin, prednisone taper and course of Mucinex. Pt felt good improvement with nebulizer treatments and nebulizer has been prescribed for her. Blood cultures pending on discharge, negative at 24 hours. #LEO suspect related to dehydration and continued meds. This has improved with small IV fluid bolus. Encourage PO hydration at discharge #DMT2 Higher insulin needs with IV steroids. Dose reduce lantus to 40u tonight, as she receieved lantus this AM. Continue regular home dosing PM 06/06. #Elevated troponin Peaked at 21, downtrending. EKG without ST elevations. Denies CP. Suspect demand. HTN: continue amlodipine, lisinopril, chlorthalidone Muscle Spasms/Chronic Pain: continue Meloxicam/Celebrex, gabapentin, baclofen, and Tylenol as needed HLD: continue high intensity statin therapy Dispo: discharge to home today Notes For Next Care Provider Blood cultures pending Admission HPI Per Admitting Provider 59 y/o female with a PMHx of MS on Rituximab, IDDM, HTN, HLD, muscle spasms/chronic pain, and asthma here for evaluation of respiratory symptoms. Patient has been treated multiple times for presumed pneumonia. She was treated initially in February with Augmentin, Z-pack, and Medrol dose pack. Symptoms without significant improvement at the end of March so 7 days of Levaquin was prescribed and a CT Chest ordered. Patient got the CT Chest 06/01 which showed bilateral multifocal pneumonia and she was instructed to come to the ED. Patient does take Tylenol throughout the day for pain so she has not noticed any fevers. Patient does wake up sweaty, which is abnormal for her. No unintentional weight loss. Did have an episode of right sided flank/rib pain and reports muscle spasms from cough. No abdominal pain. Has urinary frequency and drinks a lot of water, but no pain or blood in the urine. Reports that she gets dehydrated easily. She takes most of her medications at night, so she had not had her BP meds today. Discharge Exam General: NAD, VS as above, sitting up in bed, appears well Resp: normal respiratory effort, clear to auscultation CV: RRR, no murmur, Abd: normal bowel sounds, non tender, soft Extremities: Moves all extremities, trace lower extremity edema Neuro: A&O x3, Discharge Plan Discharge Items Patient Disposition: Home - Self-Care Reason For Visit: SOB COUGH Discharge Diagnosis: Pneumonia Condition on Discharge: Fair Activity: Resume your previous activity Non-emergency contact: Primary Care Provider Call non-emergency contact if: you have any medication questions, your symptoms worsen, your pain is worsening, your pain is unusual for you and your temperature is above 101 Follow-up/Referrals: Alicia Nuñez PA-C [Primary Care Provider] - 06/12/24 1:40 pm ( registration time 1:25 pm for a 1:40pm appointment with Dr. Castanon) Diet: Carb Consistent or DM2 Addtl Attending Provider Instructions: Ms. Lanza, You were hospitalized after having multifocal pneumonia on CT scan. During your stay you had another CT scan done to check for blood clots in your lungs, thankf ully this was negative. You have continued to progress well on IV antibiotics and will be discharged home with oral antibiotics, steroids and Mucinex. You have blood cultures pending at the time of discharge, they are negative at 24 hours but take 5 days to get final results. If they turn positive you will be notified, you can also check in with your PCP or the [facility] portal. However, given your symptoms I do not expect they will be positive. Recommendations: * Your blood sugars have been high because of the IV steroids we have been giving you, requiring you to have more insulin needs. You received 60 units of lantus last night and 40 this morning. Given that you will still be on steroids for a few days, you sugars will likely remain higher but this should improve as the steroid dose increases. Since you got lantus this morning, recommend only taking 40 units of lantus tonight. Tomorrow (06/06) take your normal dose of lantus at night. * A nebulizer has been prescribed for you - you will have to pick this up from [facility]. The medicine for it will be at the pharmacy. * Take Augmentin (antibiotic) as directed, please take the full course. First dose PM 06/05 * Prednisone - this is steroid taper, take as directed. First dose AM 06/06 * Mucinex - first dose PM 06/05 * Continue to use the incentive spirometer and flutter valve at home while you continue to heal * Follow up with your PCP within 7-10 days Activity: You can do normal everyday activities as your body allows. Take rest breaks if you feel tired. Do not overexert. Stop activity if you have pain, shortness of breath or feel dizzy. Follow-up appointments: Make an appointment with your primary care physician within one week of discharge. A copy of this summary will be sent to them. Every time you see your primary care physician, or any other doctor, bring your medication list, and a list of questions. CONTACT YOUR PRIMARY CARE PROVIDER if you experience any of the following: Shortness of breath or difficulty breathing Fevers or chills Feeling tired with normal activity or experiencing dizziness or fainting Difficulty following your treatment plan, or difficulty taking medications CALL 911 OR GO TO THE EMERGENCY DEPARTMENT if you experience any of the following: Severe abdominal pain or nausea/vomiting Severe chest pain, or chest pain that radiates (moves) to your jaw or arm Sudden, severe shortness of breath or difficulty breathing Thank you for allowing us to participate in your care. Pending Studies at Discharge: Yes (blood cultures ) Stand-Alone Forms: My [employer], Work/School Release, Smoking Cessation Medications and DC Order Prescriptions: New guaifenesin [Mucinex] 600 mg Tablet Extended Release 12hr 1,200 mg PO Q12 7 Days Qty: 28 0RF amoxicillin-pot clavulanate 875-125 mg tablet 1 tab PO BID Qty: 14 0RF prednisone 10 mg tablet See Taper PO DIRECTED Qty: 27 0RF Taper: Taper, Blank 40 mg DAILY for 3 Days 30 mg DAILY for 3 Days 20 mg DAILY for 3 Days Rx Instructions: see taper instructions albuterol sulfate 2.5 mg /3 mL (0.083 %) solution for nebulization 2.5 mg inhalation Q6H PRN (Reason: shortness of breath or wheezing) Qty: 75 0RF Continued celecoxib 200 mg Capsule 200 mg PO BID atorvastatin 80 mg tablet 80 mg PO DAILY meloxicam 15 mg tablet 15 mg PO DAILY chlorthalidone 25 mg tablet 25 mg PO DAILY acetaminophen [Tylenol Arthritis] 650 mg Tablet Extended Release 650 mg PO DIRECTED PRN (Reason: Pain) baclofen 20 mg tablet 20 mg PO QID amlodipine 10 mg tablet 10 mg PO DAILY gabapentin 300 mg capsule 300 mg PO HS Rx Instructions: TOTAL DOSE 400 MG--TAKES WITH 100 MG CAP. gabapentin 100 mg capsule 100 mg PO HS Rx Instructions: TOTAL DOSE 400 MG--TAKES WITH 300 MG CAP. lisinopril 40 mg tablet 40 mg PO DAILY sertraline 50 mg tablet 50 mg PO DAILY insulin glargine [Lantus Solostar U-100 Insulin] 100 unit/mL (3 mL) insulin pen 58 unit SUBCUT QDD Dulera 100-5 mcg/actuation HFA aerosol inhaler 1 inh INHALATION DIRECTED PRN (Reason: Shortness Of Breath Or Wheezing) Combivent Respimat 20-100 mcg/actuation mist 1 spray INHALATION DIRECTED PRN (Reason: Shortness Of Breath Or Wheezing) Mounjaro 10 mg/0.5 mL pen injector 10 mg SUBCUT WK Rx Instructions: TAKES ON THURSDAYS Discharge Orders: Discharge Order (Routine); Ordered 06/05/24 Ordered By: Marge Johnson/Other Patient Handouts: Managing Type 2 Diabetes, Using a Nebulizer (Adult) Admission Data Admit Date/Time: 06/03/24 21:36 Attending Provider: Anil Lynch Admit Provider: Lina Perez Primary Care Provider: Alicia Nuñez Other Providers: Sergio Flower Hospital Stay Data Consultations 06/03/24 20:49 ED Decision to Admit Stat Diagnostic Imagining Performed Chest X-Ray 06/03/24 19:35 Exam(s): XR CXR 1 VIEW EXAM: XR Chest, 1 View CLINICAL HISTORY: Reason for exam: Dyspnea. TECHNIQUE: Frontal view of the chest. COMPARISON: 11/21/2023 FINDINGS: Lungs: No consolidation. No overt edema. Pleural space: No pleural effusion. No pneumothorax. Heart: Unremarkable. No cardiomegaly. IMPRESSION: No acute cardiopulmonary abnormality. Electronically signed by: Jayden Glover MD 06/03/24 21:58 PM Chest CTA 06/03/24 22:00 Exam(s): CTA CHEST IV Amt: 118 ML OPTIRAY 320 EXAM: CT Angiography Chest With Intravenous Contrast CLINICAL HISTORY: Reason for exam: PE. TECHNIQUE: Axial computed tomographic angiography images of the chest with intravenous contrast. CTDI is 38 mGy and DLP is 860.05 mGy-cm. Automated exposure control was utilized for the study. A dose lowering technique was utilized adhering to the principles of ALARA. MIP reconstructed images were created and reviewed. COMPARISON: No relevant prior studies available. FINDINGS: Artifact degrades image quality somewhat limiting the exam. Pulmonary arteries: No pulmonary embolism is seen. Aorta: No thoracic aortic aneurysm or dissection. Lungs: There are patchy bilateral infiltrates more pronounced on the right.. Pleural space: No significant effusion. No pneumothorax. Heart: Heart is normal in size. A cardiac stent is noted. Bones/joints: There are degenerative changes in the spine. Soft tissues: Unremarkable. Lymph nodes: No enlarged lymph nodes. IMPRESSION: Limited exam. No pulmonary embolism is seen. There are patchy bilateral infiltrates more pronounced on the right. Electronically signed by: Seamus Kennedy MD 06/04/24 00:32 AM Pending Results Patient Have Any Pending Studies at Discharge: Yes (blood cultures ) Discharge Instructions Given to Patient (Per Discharging Provider) Ms. Lanza, You were hospitalized after having multifocal pneumonia on CT scan. During your stay you had another CT scan done to check for blood clots in your lungs, thankfully this was negative. You have continued to progress well on IV antibiotics and will be discharged home with oral antibiotics, steroids and Mucinex. You have blood cultures pending at the time of discharge, they are negative at 24 hours but take 5 days to get final results. If they turn positive you will be notified, you can also check in with your PCP or the [facility] portal. However, given your symptoms I do not expect they will be positive. Recommendations: * Your blood sugars have been high because of the IV steroids we have been giving you, requiring you to have more insulin needs. You received 60 units of lantus last night and 40 this morning. Given that you will still be on steroids for a few days, you sugars will likely remain higher but this should improve as the steroid dose increases. Since you got lantus this morning, recommend only taking 40 units of lantus tonight. Tomorrow (06/06) take your normal dose of lantus at night. * A nebulizer has been prescribed for you - you will have to pick this up from [facility]. The medicine for it will be at the pharmacy. * Take Augmentin (antibiotic) as directed, please take the full course. First dose PM 06/05 * Prednisone - this is steroid taper, take as directed. First dose AM 06/06 * Mucinex - first dose PM 06/05 * Continue to use the incentive spirometer and flutter valve at home while you continue to heal * Follow up with your PCP within 7-10 days Activity: You can do normal everyday activities as your body allows. Take rest breaks if you feel tired. Do not overexert. Stop activity if you have pain, shortness of breath or feel dizzy. Follow-up appointments: Make an appointment with your primary care physician within one week of discharge. A copy of this summary will be sent to them. Every time you see your primary care physician, or any other doctor, bring your medication list, and a list of questions. CONTACT YOUR PRIMARY CARE PROVIDER if you experience any of the following: Shortness of breath or difficulty breathing Fevers or chills Feeling tired with normal activity or experiencing dizziness or fainting Difficulty following your treatment plan, or difficulty taking medications CALL 911 OR GO TO THE EMERGENCY DEPARTMENT if you experience any of the following: Severe abdominal pain or nausea/vomiting Severe chest pain, or chest pain that radiates (moves) to your jaw or arm Sudden, severe shortness of breath or difficulty breathing Thank you for allowing us to participate in your care. Total Time Total Time Spent Total Time Spent (In Minutes): Time spent day of discharge 36 minutes including direct patient care, medication reconciliation, documentation, review of labs and images, and coordination of care. Coding Level of Care Code 64718 INP/OBS DISCH >30 MIN Diagnoses Pneumonia J18.9 Laterality: bilateral Lung location: unspecified part of lung Pneumonia type: due to unspecified organism Insulin dependent type 2 diabetes mellitus E11.9; Z79.4 Elevated troponin R79.89 Immunocompromised D84.9 Failure of outpatient treatment Z78.9 Rib pain R07.81
== END 2024-06-05 13:44 | disposition home or self-care (01) | DRG 194 ==
LOC: ED 19:13 → 3W 21:36 → SUATTDRO 21:36 → 3W 23:32